=== PATIENT | male | born 1980 | race Hispanic/Latino ===

== ENCOUNTER 2016-12-27 15:11 | Emergency (ER) | payer OTHER ==
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
--- NOTE | 2016-12-27 16:46 | XRay Report ---
LEFT HUMERUS: History: Pain, injury AP and lateral views of the humerus demonstrate normal mineralization and contours for this patient's age. No destructive changes are noted and the adjacent soft tissues are normal. IMPRESSION: Normal left humerus.
--- NOTE | 2016-12-27 16:46 | XRay Report ---
LEFT SHOULDER, 3 VIEWS History: Deformity. Findings: The distal left clavicle is elevated by 1 cm with respect to the acromion consistent with acromioclavicular ligament injury. There is no evidence for fracture or dislocation. No joint pathology. The soft tissues are unremarkable. Impression: Ligamentous injury at the left acromioclavicular joint.
[2016-12-27] MEDS ORDERED: SUBLIMAZE IV ONE (16:48)
[2016-12-27] MEDS ORDERED: TORADOL IV ONE (16:49)
[2016-12-27] MEDS ORDERED: MOTRIN PO ONE (16:50)
[2016-12-27 18:20] VITALS: BP 133/80
== END 2016-12-27 19:05 | disposition home or self-care (01) ==
LOC: ED 15:11
DX: S43.102A Unspecified dislocation of left acromioclavicular joint, initial encounter (principal); F17.200 Nicotine dependence, unspecified, uncomplicated; Z91.018 Allergy to other foods; V49.49XA Driver injured in collision with other motor vehicles in traffic accident, initial encounter; Y93.89 Activity, other specified; Y92.89 Other specified places as the place of occurrence of the external cause; Y99.8 Other external cause status
CPT/HCPCS: 70450; 73030; 73060; 96374; 99284; J3010; J1885